=== PATIENT | male | born 1990 | race Caucasian/White ===

== ENCOUNTER 2016-06-03 17:08 | Emergency (ER) | payer OTHER ==
[~2016-06-03] VITALS: Ht 177.8 cm; Wt 92.1 kg
[2016-06-03 17:22] VITALS: BP 141/80
== END 2016-06-03 18:07 | disposition home or self-care (01) ==
LOC: ED 17:08
DX: N45.1 Epididymitis (principal)

== ENCOUNTER 2016-09-17 14:34 | Emergency (ER) | payer OTHER ==
[~2016-09-17] VITALS: Ht 177.8 cm; Wt 91.7 kg
[2016-09-17 14:39] VITALS: BP 149/89
== END 2016-09-17 18:12 | disposition left against medical advice (07) ==
LOC: ED 14:34
DX: Z53.21 Procedure and treatment not carried out due to patient leaving prior to being seen by health care provider (principal)

== ENCOUNTER 2018-12-06 12:23 | Emergency (ER) | payer OTHER ==
[~2018-12-06] VITALS: Ht 180.3 cm; Wt 86.2 kg
[2018-12-06 12:55] VITALS: Ht 180.3 cm; Wt 86.2 kg
[2018-12-06 14:03] VITALS: BP 121/73
== END 2018-12-06 14:03 | disposition home or self-care (01) ==
LOC: ED 12:23
DX: S83.91XA Sprain of unspecified site of right knee, initial encounter (principal); X58.XXXA Exposure to other specified factors, initial encounter; Y93.89 Activity, other specified; Y92.89 Other specified places as the place of occurrence of the external cause; Y99.8 Other external cause status